=== PATIENT | male | born 1960 | race Caucasian/White ===

== ENCOUNTER 2021-08-16 09:44 | Emergency (ER) | payer SELFPAY ==
[2021-08-16 10:06] VITALS: BP 167/79; PULSE 84; RESP 18; TEMP 36.3; O2SAT 98; BMI 24.3
[2021-08-16 10:12] VITALS: BP 169/79; PULSE 91; RESP 14; TEMP 36.6; O2SAT 97
--- NOTE | 2021-08-16 10:28 | W.ED.WOUNDLC ---
HPI - Wound/Laceration General: Chief Complaint: Wound/Laceration Stated Complaint: FACIAL INJURY: CUT BY CATTLE GATE Time Seen by Provider: 08/16/21 10:16 History of Present Illness: HPI narrative: Patient is a 60-year-old male who comes to the ED with a laceration to face. Patient says injury occurred just prior to arrival. 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 Because the gait to go back cutting his left side of upper lip and cheek. He says most of the gait he was able to catch with his arm to decrease the impact of the gait on his face. He states that his dentures then cut the inside of his mouth causing a through and through laceration on the upper lip. He denies any headache, numbness tingling/weakness to 1 side of his body, loss of consciousness or any other neurological symptoms. He has some pain on his face right where the laceration is hurts whenever he moves his lips due to the laceration. Denies any jaw pain. Patient says he is up-to-date on his tetanus. Associated symptoms: Denies chills, fever(s), nausea or vomiting Review of Systems Const: Denies: fever(s), chills or fatigue Eyes: Denies: change in vision or eye discomfort ENMT: Denies: throat pain, odynophagia, nasal discharge or nasal congestion Card: Denies: chest pain, palpitations, edema, swelling of feet/ankles, dyspnea on exertion or orthopnea Resp: Denies: dyspnea, productive cough or non-productive cough GI: Denies: abdominal pain, nausea, vomiting, diarrhea, constipation or hematochezia : Denies: flank pain, difficulty urinating, dysuria or hematuria Musc: Denies: neck pain, back pain or extremity swelling Skin/Breast: Reports: new lesions (laceration on left upper lip); Denies: rash Neuro: Denies: headache(s), numbness in extremities or weakness in extremities Physical Exam Const: COMMON NORMALS: no acute distress, patient oriented x3, healthy appearing and alert GENERAL APPEARANCE: cooperative and comfortable HENMT: COMMON NORMALS: normocephalic and Normal external nose present HEAD & SCALP: normocephalic FACE & SINUS: laceration (Does not involve vermilion border. Through and through laceration) left upper lip linear, with motor nerve function intact and with sensation intact; not actively bleeding, no pulsatile bleeding and with no foreign body present Facial laceration size: 3 cm; no ecchymosis, no Facial tenderness on exam of face and sinuses and no TMJ findings NOSE: Normal external nose present MOUTH: Normal oral and palatal mucosa present; no TMJ findings THROAT: posterior oropharynx normal and uvula midline Eye: COMMON NORMALS: Equal, round and reactive pupils present PUPIL: Yes Equal, round and reactive pupils present Neck/C-Spine: COMMON NORMALS: supple GENERAL: Yes normal visual inspection Resp: COMMON NORMALS: normal respiratory effort, No retractions, No use of accessory muscles and clear to auscultation bilaterally AUSCULTATION: clear to auscultation bilaterally Cardio: COMMON NORMALS: regular rate, regular rhythm, S1 normal heart sound present, S2 normal heart sound present, No gallops present (Cardio), No clicks present (Cardio), No murmurs present (Cardio) and Peripheral pulses 2+ throughout RATE: regular rate RHYTHM: regular rhythm HEART SOUNDS: S1 normal heart sound present and S2 normal heart sound present PERIPHERAL PULSES: Peripheral pulses 2+ throughout GI: COMMON NORMALS: Normal to inspection, nondistended, normoactive bowel sounds present, Soft to palpation, non-tender and no masses PALPATION: Yes Soft to palpation : COMMON NORMALS: Yes no CVA tenderness BLADDER/KIDNEY EXAM: Yes no CVA tenderness Back/Pelvis: COMMON NORMALS: no CVA tenderness Extremity: COMMON NORMALS: normal to inspection Neuro: COMMON NORMALS: patient oriented x3 and moves all extremities SENSORIUM/ORIENTATION: Yes alert Skin: GENERAL SKIN EXAM: dry skin Procedures Laceration Laceration 1: Site: lip (upper lip left side. no sridhar border) Side (If applicable): left Size (cm): 3 Description: linear and clean Depth: [id number] Local Anesthetic: lidocaine 1% and with epi Amount of anesthesia used (mL): 10 Pre-repair: irrigated extensively (With normal saline.) Skin layer closed with: nylon Size (cm): 5-0 Number of sutures: 7 Technique: simple, interrupted Course Vital Signs: Vital signs: Vital Signs Temperature 97.8 F 08/16/21 10:12 Pulse Rate 74 08/16/21 11:45 Respiratory Rate 16 08/16/21 11:33 Blood Pressure 151/76 08/16/21 11:45 Pulse Oximetry 98 08/16/21 11:45 MDM - Wound/Laceration MDM Narrative: Medical decision making narrative: Patient is a 60-year-old male comes to the ED with laceration to left upper lip. Denies any loss of consciousness, headache or dizziness. Patient is up-to-date on his tetanus. On exam patient has a through and through laceration of the upper lip at approximately 3 cm linear length. It is not actively bleeding and does not involve the vermilion border. Patient had no other significant exam findings. Laceration was irrigated extensively with normal saline and lidocaine 1% with epinephrine was used as local. 7 sutures were placed on the outside of laceration to close wound. Patient was discharged with a prescription for Bactrim to prevent any infection. He was told to have the sutures removed in about 5 days. Return to ED precautions given. Patient understood and agreed with plan. Discharge Plan Discharge Patient Disposition: Home Clinical Impression: Facial laceration Qualifiers: Encounter type: initial encounter Qualified Code(s): S01.81XA - Laceration without foreign body of other part of head, initial encounter Condition: Stable Prescriptions: New Bactrim DS 800-160 mg tablet 1 tab PO BID 5 Days Qty: 10 RF: 0 Discharge Orders: Discharge ED (Routine); Ordered 08/16/21 Ordered By: Andriy Curran Discharge Diet: GI Soft and Full LIquid Discharge Activity: Resume usual activity Patient Instructions: Facial Laceration (ED) Activity Restrictions/Additional Instructions: Take full course of antibiotics as prescribed. Keep laceration site clean and dry for the next 24 hours. Watch for signs of infection such as redness, warmth, increased tenderness and puslike drainage. If you see the signs of infection return to the ED, urgent care or PCP for reevaluation. call your PCP to schedule a follow-up appointment for reevaluation and suture removal in about 5 days. Make sure to rinse inside of mouth with water after meals try to remove any food particles could be caught in laceration inside your mouth. Continue taking all home meds. Follow discharge plans as discussed. You can return to the ED if symptoms worsen. Coding Level of Care Code ED [employer] Exam Comprehensive
--- NOTE | 2021-08-16 11:30 | PC.NURSE ---
PATIENT STATES THAT HE IS FEELING MUCH BETTER AFTER TREATMENT. THIS NURSE LISTENED TO BREATH SOUNDS AND THEY ALSO SOUND IMPROVED BILATERALLY.
[2021-08-16 11:33] VITALS: BP 151/76; PULSE 78; RESP 16; O2SAT 98
[2021-08-16] MEDS: sulfamethoxazole-trimeth DS 160-800 mg Tablet 1 TAB PO (11:36)
[2021-08-16 11:45] VITALS: BP 151/76; PULSE 74; O2SAT 98
== END 2021-08-16 11:45 | disposition home or self-care (01) ==
PROVIDERS: Emergency Provider Physician Assistant
DX: S01.511A Laceration without foreign body of lip, initial encounter (principal); W26.8XXA Contact with other sharp object(s), not elsewhere classified, initial encounter
CPT/HCPCS: 12013; 99283